=== PATIENT | female | born 1990 | race Caucasian/White ===

== ENCOUNTER 2019-10-29 20:33 | Emergency (ER) | payer BC ==
[2019-10-29] MEDS ORDERED: methylPREDNISolone Sodium Succinate 125 MG/2 ML SDV IM ONE (21:00)
--- NOTE | 2019-10-29 21:00 | EDM.PDOC ---
ED HPI GENERAL MEDICAL PROBLEM - General Chief Complaint: Upper Extremity Injury/Pain Stated Complaint: SHOULDER PAIN Time Seen by Provider: 10/29/19 20:34 Source of Information: Reports: Patient History Limitations: Reports: No Limitations - History of Present Illness INITIAL COMMENTS - FREE TEXT/NARRATIVE: HISTORY AND PHYSICAL: History of present illness: Patient is a 28-year-old female who presents to the emergency room with complaints of left upper extremity pain. She states approximately 1 week ago she started to have left shoulder pain that radiates down her arm. This is aggravated and worsened with movement. She states she still is able to use her arm and denies any weakness although states it is painful. She denies any injury, trauma or falls. Patient denies any fever, chills, headache, change in vision, syncope or near syncope. Denies any chest pain, back pain, shortness of breath or cough. Denies any GI or symptoms. Patient has been eating and drinking appropriately. Review of systems: As per history of present illness and below otherwise all systems reviewed and negative. Past medical history: As per history of present illness and as reviewed below otherwise noncontributory. Surgical history: As per history of present illness and as reviewed below otherwise noncontributory. Social history: See social history for further information Family history: As per history of present illness and as reviewed below otherwise noncontributory. Physical exam: General: Well-developed and well-nourished 28-year-old female. Alert and oriented. Nontoxic-appearing and in no acute distress. HEENT: Atraumatic, normocephalic, pupils equal and reactive bilaterally, negative for conjunctival pallor or scleral icterus, mucous membranes moist, TMs normal bilaterally, throat clear, neck supple, nontender, trachea midline. No drooling or trismus noted. No meningeal signs. No hot potato voice noted. Lungs: Clear to auscultation, breath sounds equal bilaterally, chest nontender. Heart: S1S2, regular rate and rhythm without overt murmur Abdomen: Soft, nondistended, nontender. Negative for masses or hepatosplenomegaly. Negative for costovertebral tenderness. Skin: Intact, warm, dry. No lesions or rashes noted. C-spine/Back: No pinpoint vertebral tenderness upon palpation. No crepitus, step -offs or obvious deformities. Patient is ambulatory into the emergency room without difficulty or deficit. Able to rock back on heels and walk on toes. Denies any urinary or fecal incontinence. Denies any numbness, tingling or saddle paresthesia. Extremities: Atraumatic, moves all extremities per self without deficits, patient has pain with range of motion involving the left shoulder. She also has pain with palpation of the musculature, bony prominences are not uncomfortable. No weakness. Strong radial pulses with good cap refill. Negative for cords or calf pain. Neurovascular unremarkable. Neuro: Awake, alert, oriented. Cranial nerves II through XII unremarkable. Cerebellum unremarkable. Motor and sensory unremarkable throughout. Exam nonfocal. Notes: Suspected shoulder impingement. Sling given for comfort. We discussed the need for follow-up with an orthopedic provider if pain continues. We also discussed signs and symptoms that would prompt her to return to the emergency room. Medication and supportive care measures were reviewed and discussed. Voices understanding and is agreeable to plan of care. Denies any further questions or concerns at this time. Diagnostics: None Therapeutics: Solu-Medrol, [place] Prescription: Medrol, Impression: Suspected shoulder impingement syndrome, left Plan: 1. Rest, ice, elevate the affected extremity. Avoid overhead activities and aggravating activities. 2. Tylenol and/or Ibuprofen as needed for pain management. Please take Ibuprofen routinely with food over the next few days. 3. Follow up with the Orthopedic provider as we discussed. Return to the ED as needed and as discussed. Definitive disposition and diagnosis as appropriate pending reevaluation and review of above. L shoulder Pain Score (Numeric/FACES): 10 - Related Data Allergies Allergy/AdvReac Type Severity Reaction Status Date / Time No Known Allergies Allergy Verified 10/29/19 20:55 Home Meds: Home Meds Acetaminophen/HYDROcodone [[place] 325-5 MG] 1 tab PO Q4H #15 tablet 10/29/19 [Rx] methylPREDNISolone [Medrol] 1 dose PO DAILY 6 Days #1 dospk 10/29/19 [Rx] Review of Systems - Review of Systems Review Of Systems: Comprehensive ROS is negative, except as noted in HPI. ED EXAM, GENERAL - Physical Exam Exam: See Below (See diuctation) Course - Vital Signs Last Recorded V/S: Last Vital Signs Temp 97.3 F 10/29/19 20:47 Pulse 85 10/29/19 20:47 Resp 18 10/29/19 20:47 BP 129/71 10/29/19 20:47 Pulse Ox 98 10/29/19 20:47 - Orders/Labs/Meds Orders: Active Orders 24 hr Category Date Time Status DME for Discharge [COMM] Stat Oth 10/29/19 21:16 Ordered Meds: Medications Discontinued Medications Generic Name Dose Route Start Last Admin Trade Name Chuck PRN Reason Stop Dose Admin Hydrocodone Bitart/Acetaminophen 1 tab 10/29/19 21:01 [place] 325-5 Mg PO 10/29/19 21:02 ONETIME ONE Methylprednisolone Sodium Succinate 125 mg 10/29/19 21:00 Solu-Medrol IM 10/29/19 21:01 ONETIME ONE Departure - Departure Time of Disposition: 21:14 Disposition: Home, Self-Care 01 Clinical Impression: Shoulder impingement Qualifiers: Laterality: left Qualified Code(s): M75.42 - Impingement syndrome of left shoulder - Discharge Information Prescriptions: Acetaminophen/HYDROcodone [[place] 325-5 MG] 1 tab PO Q4H #15 tablet methylPREDNISolone [Medrol] 1 dose PO DAILY 6 Days #1 dospk Instructions: Shoulder Impingement Syndrome Referrals: PCP,None [Primary Care Provider] - Forms: ED Department Discharge Additional Instructions: The following information is given to patients seen in the emergency department who are being discharged to home. This information is to outline your options for follow-up care. We provide all patients seen in our emergency department with a follow-up referral. The need for follow-up, as well as the timing and circumstances, are variable depending upon the specifics of your emergency department visit. If you don't have a primary care physician on staff, we will provide you with a referral. We always advise you to contact your personal physician following an emergency department visit to inform them of the circumstance of the visit and for follow-up with them and/or the need for any referrals to a consulting specialist. The emergency department will also refer you to a specialist when appropriate. This referral assures that you have the opportunity for follow-up care with a specialist. All of these measure are taken in an effort to provide you with optimal care, which includes your follow-up. Under all circumstances we always encourage you to contact your private physician who remains a resource for coordinating your care. When calling for follow-up care, please make the office aware that this follow-up is from your recent emergency room visit. If for any reason you are refused follow-up, please contact the [facility] Emergency Department at and asked to speak to the emergency department charge nurse. [facility] [address] [place] [address] [facility] [address] [place] [address] 1. Rest, ice, elevate the affected extremity. Avoid overhead activities and aggravating activities. 2. Tylenol and/or Ibuprofen as needed for pain management. Please take Ibuprofen routinely with food over the next few days. [place] for moderate to severe pain. Will cause drowsiness so do not take while driving or needing to be functioning outside the house. 3. Follow up with the Orthopedic provider as we discussed. Return to the ED as needed and as discussed. Sepsis Event Note - Evaluation Sepsis Screening Result: No Definite Risk - Focused Exam Vital Signs: Vital Signs Temp Pulse Resp BP Pulse Ox 10/29/19 20:47 97.3 F 85 18 129/71 98 Date Exam was Performed: 10/29/19 Time Exam was Performed: 21:19 - My Orders Last 24 Hours: My Active Orders 10/29/19 21:16 DME for Discharge [COMM] Stat - Assessment/Plan Last 24 Hours: My Active Orders 10/29/19 21:16 DME for Discharge [COMM] Stat
[2019-10-29] MEDS ORDERED: Acetaminophen/HYDROcodone 325-5 MG Tab PO ONE (21:01)
== END 2019-10-29 22:11 | disposition home or self-care (01) ==
LOC: MW.ED 20:33
DX: M75.42 Impingement syndrome of left shoulder (principal); Z79.899 Other long term (current) drug therapy
CPT/HCPCS: 96372; 99283; A9270; J2930

== ENCOUNTER 2022-09-04 10:31 | Day surgery (SDC) | payer BC ==
[~2022-09-04 10:31] MED LIST: Lactated Ringers 1,000 ML IV SCH
[2022-09-04] MEDS ORDERED: ceFAZolin 2 GM Vial ONE (12:19)
[2022-09-04] MEDS ORDERED: Phenylephrine 1% 10 MG/ML SDV ONE (12:37)
[2022-09-04] MEDS ORDERED: Ondansetron 4 MG/2 ML SDV ONE (12:37)
[2022-09-04] MEDS ORDERED: ePHEDrine 50 MG/ML SDV ONE (12:37)
[2022-09-04] MEDS ORDERED: Glycopyrrolate 0.2 MG/ML SDV ONE (12:37)
[2022-09-04] MEDS ORDERED: Acetaminophen 325 MG Tab PO ONE (15:18)
== END 2022-09-04 16:40 | disposition home or self-care (01) ==
LOC: MW.SDS 10:31
PROVIDERS: ATTEND Obstetrics & Gynecology
DX: O34.32 Maternal care for cervical incompetence, second trimester (principal); E66.9 Obesity, unspecified; Z68.41 Body mass index [BMI] 40.0-44.9, adult; Z79.899 Other long term (current) drug therapy; Z79.82 Long term (current) use of aspirin; Z98.890 Other specified postprocedural states; Z90.49 Acquired absence of other specified parts of digestive tract; Z3A.21 21 weeks gestation of pregnancy
CPT/HCPCS: 59320; 82947; A9270; J0690; J2370; J2405; J7120; J3490